=== PATIENT | male | born 1995 | race Caucasian/White ===

== ENCOUNTER 2020-05-13 14:06 | Outpatient (REF) | payer OTHER, SELFPAY ==
[2020-05-13 14:48] LABS: MANUAL DIFF FLAG NO
[2020-05-13 14:58] LABS: Basophils Percent Auto 0.5 % (0-2); Eosinophils Absolute Auto 0.7 X10*3/uL (0.0-0.4); Eosinophils Percent Auto 9.7 % (0-4); Hematocrit 48.2 % (42-52); Hemoglobin 15.9 g/dl (14.0-18.0); Imm Gran Abs Auto 0.03 X10*3/uL (0.00-0.03); Imm Gran Pct Auto 0.4 % (0.0-0.4); Lymphocytes Absolute Auto 1.7 X10*3/uL (1.2-4.9); Lymphocytes Percent Auto 23.4 % (20-40); Mean Corpuscular Hemoglobin 30.7 pg (27.0-33.0); Mean Corpuscular Volume 93.1 fL (80-98); Mean Platelet Volume 10.8 fL (9.4-12.4); Monocytes Absolute Auto 0.6 X10*3/uL (0.1-1.2); Monocytes Percent Auto 7.9 % (2-11); Neutrophils Absolute Auto 4.2 X10*3/uL (2.0-8.3); Neutrophils Percent Auto 58.1 % (45-73); Platelet Count 296 X10*3/uL (160-400); Red Blood Count 5.18 X10*6/uL (4.60-5.80); Red Cell Distribution Width 12.7 % (11.0-16.0); White Blood Count 7.3 X10*3/uL (4.8-10.8)
[2020-05-13 15:26] LABS: Anion Gap 13 (12-20); Blood Urea Nitrogen 16 mg/dL (9-16); Calcium 9.6 mg/dL (8.4-10.2); Carbon Dioxide 29 mmol/L (22-29); Chloride 102 mmol/L (96-108); Estimated Glomerular Filt Rate > 60; Glucose Random 84 mg/dL (60-115); Potassium 4.8 mmol/l (3.3-5.1); Sodium 139 mmol/L (135-145)
[2020-05-13 16:00] LABS: Syphilis Screen Nonreactive (Nonreactive)
[2020-05-14 08:34] LABS: HIV Num 1 0.07 S/CO (0.00-0.99); ~HepC Num1 0.07 S/CO (0.00-0.79); ~Hepatitis C Antibody Nonreactive (Nonreactive)
[2020-05-14 08:35] LABS: HIV AB/AG Nonreactive (Nonreactive)
[2020-05-16 17:54] LABS: Chlamydia Pneumoniae IgA <1:16 titer (<1:16); Chlamydia Pneumoniae IgG <1:64 titer (<1:64); Chlamydia Pneumoniae IgM <1:10 titer (<1:10); Chlamydia Psittaci IgA <1:16 titer (<1:16); Chlamydia Psittaci IgG <1:64 titer (<1:64); Chlamydia Psittaci IgM <1:10 titer (<1:10); Chlamydia Trachomatis IgA <1:16 titer (<1:16); Chlamydia Trachomatis IgG <1:64 titer (<1:64); Chlamydia Trachomatis IgM <1:10 titer (<1:10)
== END 2020-05-13 14:07 | disposition home or self-care (01) ==
LOC: HO.LAB 14:06
PROVIDERS: PCP Internal Medicine; Visit Provider Internal Medicine
DX: Z11.4 Encounter for screening for human immunodeficiency virus [HIV] (principal); Z01.84 Encounter for antibody response examination; R51.9 Headache, unspecified; Z20.2 Contact with and (suspected) exposure to infections with a predominantly sexual mode of transmission
CPT/HCPCS: 36415; 80048; 85025; 86631; 86632; 86780; 86803; 87389

== ENCOUNTER 2021-04-22 10:48 | Outpatient (REF) | payer OTHER, SELFPAY ==
[2021-04-22 11:14] LABS: MANUAL DIFF FLAG NO
[2021-04-22 12:01] LABS: Basophils Percent Auto 0.4 % (0-2); Eosinophils Absolute Auto 0.2 X10*3/uL (0.0-0.4); Eosinophils Percent Auto 2.7 % (0-4); Hematocrit 47.9 % (42-52); Hemoglobin 16.4 g/dl (14.0-18.0); Imm Gran Abs Auto 0.02 X10*3/uL (0.00-0.03); Imm Gran Pct Auto 0.3 % (0.0-0.4); Lymphocytes Absolute Auto 1.9 X10*3/uL (1.2-4.9); Lymphocytes Percent Auto 25.5 % (20-40); Mean Corpuscular HGB Conc 34.2 g/dl (31.0-36.0); Mean Corpuscular Hemoglobin 30.2 pg (27.0-33.0); Mean Corpuscular Volume 88.2 fL (80-98); Mean Platelet Volume 11.3 fL (9.4-12.4); Monocytes Absolute Auto 0.8 X10*3/uL (0.1-1.2); Monocytes Percent Auto 10.8 % (2-11); Neutrophils Absolute Auto 4.4 X10*3/uL (2.0-8.3); Neutrophils Percent Auto 60.3 % (45-73); Platelet Count 321 X10*3/uL (160-400); Red Blood Count 5.43 X10*6/uL (4.60-5.80); Red Cell Distribution Width 12.4 % (11.0-16.0); White Blood Count 7.3 X10*3/uL (4.8-10.8)
[2021-04-22 12:40] LABS: Thyroid Stimulating Hormone 1.14 uIU/mL (0.32-4.0)
[2021-04-22 13:13] LABS: Alanine Aminotransferase 16 U/L (0-40); Albumin Level 5.3 g/dL (3.5-5.0); Alkaline Phosphatase 86 U/L (39-117); Anion Gap 22 (12-20); Aspartate Amino Transferase 21 U/L (5-37); Bilirubin Total 1.3 mg/dL (0.0-1.0); Blood Urea Nitrogen 19 mg/dL (9-16); Calcium 10.7 mg/dL (8.4-10.2); Carbon Dioxide 21 mmol/L (22-29); Chloride 102 mmol/L (96-108); Cholesterol 165 mg/dL; Estimated Glomerular Filt Rate > 60; HDL Cholesterol 56 mg/dL; LDL Cholesterol Calculated 100 mg/dl; Potassium 4.8 mmol/L (3.3-5.1); Sodium 140 mmol/L (135-145); Triglycerides 45 mg/dL
[2021-04-22 13:57] LABS: Glucose Fasting 59 mg/dL (60-99)
== END 2021-04-22 10:49 | disposition home or self-care (01) ==
LOC: HO.LAB 10:48
PROVIDERS: PCP Internal Medicine; Visit Provider Internal Medicine
DX: Z00.00 Encounter for general adult medical examination without abnormal findings (principal); E03.9 Hypothyroidism, unspecified; E11.9 Type 2 diabetes mellitus without complications
CPT/HCPCS: 36415; 80053; 80061; 84443; 85025

== ENCOUNTER 2022-06-04 17:19 | Emergency (ER) | payer BC, SELFPAY ==
--- NOTE | ~2022-06-04 | XR_ITS ---
EXAMINATION: XR ankle RT 2V, XR foot RT 2V CLINICAL INFORMATION: Reason for Exam foot pain COMPARISON: None. TECHNIQUE: 3 views right ankle; 3 views right foot FINDINGS: Right ankle: No acute fracture or dislocation. Ankle mortise is congruent and intact. No ankle joint effusion. Ankle and subtalar joint spaces are maintained. Right foot: No acute fracture or dislocation. Joint spaces are maintained. Normal alignment at the tarsometatarsal joints most nonweightbearing exam. Linear sclerosis in the third distal phalanx consistent with bone island or small focus of melorheostosis. XR/XR ankle RT 2V IMPRESSION: No acute fracture or dislocation identified at the right ankle or foot.
--- NOTE | ~2022-06-04 | XR_ITS ---
EXAMINATION: XR ankle RT 2V, XR foot RT 2V CLINICAL INFORMATION: Reason for Exam foot pain COMPARISON: None. TECHNIQUE: 3 views right ankle; 3 views right foot FINDINGS: Right ankle: No acute fracture or dislocation. Ankle mortise is congruent and intact. No ankle joint effusion. Ankle and subtalar joint spaces are maintained. Right foot: No acute fracture or dislocation. Joint spaces are maintained. Normal alignment at the tarsometatarsal joints most nonweightbearing exam. Linear sclerosis in the third distal phalanx consistent with bone island or small focus of melorheostosis. XR/XR foot RT 2V IMPRESSION: No acute fracture or dislocation identified at the right ankle or foot.
[2022-06-04 18:45] VITALS: BP 136/104; PULSE 100; RESP 18; TEMP 37; O2SAT 99; BMI 25.0
== END 2022-06-04 23:58 | disposition left against medical advice (07) ==
PROVIDERS: Emergency Provider Emergency Medicine; PCP Internal Medicine
DX: S96.911A Strain of unspecified muscle and tendon at ankle and foot level, right foot, initial encounter (principal); X50.1XXA Overexertion from prolonged static or awkward postures, initial encounter; Y93.89 Activity, other specified; Y92.242 Post office as the place of occurrence of the external cause; Y99.0 Civilian activity done for income or pay
CPT/HCPCS: 73600; 73620; 99281; 99283

== ENCOUNTER 2022-07-28 14:47 | Outpatient (REF) | payer BC, SELFPAY ==
[2022-07-28 16:22] LABS: Lithium 0.79 mmol/L (0.60-1.20)
== END 2022-07-28 14:48 | disposition home or self-care (01) ==
LOC: HO.LAB 14:47
PROVIDERS: PCP Internal Medicine; Visit Provider Internal Medicine
DX: F31.9 Bipolar disorder, unspecified (principal); Z79.899 Other long term (current) drug therapy
CPT/HCPCS: 36415; 80178

== ENCOUNTER 2023-07-23 11:31 | Outpatient (AMB) | payer BC, MEDICAID, SELFPAY ==
[2023-07-23 11:36] VITALS: BP 120/88; PULSE 91; TEMP 36.8; O2SAT 99; BMI 22.0
--- NOTE | 2023-07-23 11:36 | MHC.OFFWIV ---
Intake Vital Signs 07/23/23 11:36 Height 5 ft 8 in Weight 145 lb BMI 22.0 BP 120/88 Blood Pressure Location Rt brachial Position Sitting Pulse 91 Pulse Source Pulse Oximeter Temp 98.2 F Temp Source Oral Pulse Oximetry (%) 99 Oxygen Delivery Method Room Air Intake Visit Reasons: EP vomiting last 4 days, no intake/AB Intake Note: Pt is here today for vomiting, hasn't eaten. Pt states symptoms started 4 days ago. Patient Tobacco Use Status: Former Tobacco user Allergies No Known Allergies Allergy (Verified 07/23/23 11:36) Medication List - Last Reconciled 07/23/23 by Jessica Michel NP albuterol sulfate 90 mcg/actuation 2 puffs inhalation ONCE PRN 30 days bupropion HCl 150 mg PO DAILY lithium carbonate 600 mg PO BID ondansetron 8 mg PO Q8H 24 hours quetiapine 300 mg PO BID Do you need a note to return to daycare/school/sports/work: Yes HPI HPI Comments History of Present Illness Details 28 y/0 male patient who presents to walk in clinic with c/o vomiting, diarrhea and abdominal crapping x 4 days. [facility]LY [facility] Medical History (Updated 09/05/21 @ 10:20 by DIANA Sam) Bipolar disorder Family History Mother No problems noted. Father Asthma Social History Housing: House Alcohol intake: never Patient Tobacco Use Status: Former Tobacco user e-Cigarette/Vaping Use: Currently Using Second Hand Smoke Exposure: No service: No Current occupational status: employed Cognitive needs: No Hearing needs: No Vision needs: No Review of Systems Const All systems reviewed & are unremarkable except as noted in HPI and below Physical Exam Vital Signs: Last Vital Signs Temp 98.2 F 07/23/23 11:36 Pulse 91 07/23/23 11:36 BP 120/88 07/23/23 11:36 Pulse Ox 99 07/23/23 11:36 Oxygen Delivery Method Room Air 07/23/23 11:36 BMI result Body Mass Index 22.0 Const General: no acute distress Cardio Rate: regular rate Rhythm: regular rhythm Bruits: no abdominal aortic bruits GI Inspection: Yes normal to inspection, No Abdominal wall edema, No distended and No visible herniation Palpation (GI): No Abdominal aortic bruit present, Soft to palpation, nontender, no guarding, not rigid and No hepatosplenomegaly present Percussion: Yes normal to percussion Auscultation: normal bowel sounds Assessment & Plan Assessment & Plan (1) Diarrhea: Code(s): R19.7 - Diarrhea, unspecified Qualifiers: Diarrhea type: unspecified type Qualified Code(s): R19.7 - Diarrhea, unspecified Plan: BLAND diet Rest, warm fluids. Checked Nisswa levels, WNL (2) Gastritis: Code(s): K29.70 - Gastritis, unspecified, without bleeding Qualifiers: Chronicity: acute Gastritis bleeding: without bleeding Gastritis type: other gastritis Qualified Code(s): K29.00 - Acute gastritis without bleeding Plan: BLAND diet Rest, warm fluids. Checked Nisswa levels, WNL Orders: Orders Nisswa Today K29.70 - Gastritis, unspecified, without bleeding Medications: New ondansetron 8 mg PO Q8H 24 hours 20 tabs 0RF K29.70 - Gastritis, unspecified, without bleeding, R19.7 - Diarrhea, unspecified metoclopramide HCl (Reglan) 10 mg PO Q6H 30 tabs 0RF K29.00 - Acute gastritis without bleeding, R19.7 - Diarrhea, unspecified Coding Level of Care Code Est Pt Level 2 (65377) Diagnoses Diarrhea, unspecified type R19.7 Diarrhea type: unspecified type Other acute gastritis without hemorrhage K29.00 Chronicity: acute Gastritis bleeding: without bleeding Gastritis type: other gastritis Time Spent (min) 15
== END 2023-07-23 12:54 | disposition home or self-care (01) ==
PROVIDERS: PCP Internal Medicine; Visit Provider Nurse Practitioner Family
DX: R19.7 Diarrhea, unspecified (principal); K29.00 Acute gastritis without bleeding
CPT/HCPCS: 99214

== ENCOUNTER 2023-07-23 12:13 | Outpatient (REF) | payer BC, MEDICAID, SELFPAY ==
[2023-07-23 14:26] LABS: Lithium 0.92 mmol/L (0.60-1.20)
== END 2023-07-23 12:14 | disposition home or self-care (01) ==
LOC: HO.HMGCLDS 12:13
PROVIDERS: PCP Internal Medicine; Visit Provider Nurse Practitioner Family
DX: K29.70 Gastritis, unspecified, without bleeding (principal); Z79.899 Other long term (current) drug therapy
CPT/HCPCS: 36415; 80178

== ENCOUNTER 2024-11-01 14:49 | Outpatient (AMB) | payer BC, MEDICAID, SELFPAY ==
[2024-11-01 14:51] VITALS: BP 110/76; PULSE 89; O2SAT 97; BMI 19.3
--- NOTE | 2024-11-01 14:51 | MHC.PC.OV ---
Vital Signs 11/01/24 14:51 Height 5 ft 8 in Weight 127 lb 4 oz BMI 19.3 BP 110/76 Blood Pressure Location Lt brachial Position Sitting Pulse 89 Pulse Source Pulse Oximeter Pulse Oximetry (%) 97 Oxygen Delivery Method Room Air Intake Visit Reasons: danyell Dr Olivares Certified Adapted Physical Educator Required: No Accompanied by: Self / Same As Patient Allergies No Known Allergies Allergy (Verified 11/01/24 15:08) Medication List - Last Reconciled 11/01/24 by Laron Burdick MD albuterol sulfate 90 mcg/actuation 2 puffs inhalation ONCE PRN 30 days bupropion HCl SR 150 mg PO DAILY lithium carbonate 600 mg PO BID metoclopramide HCl (Reglan) 10 mg PO Q6H ondansetron 8 mg PO Q8H 24 hours quetiapine 300 mg PO BID Tobacco use date assessed: 11/01/24 Dental Screening Dental Screen Date: 11/01/24 Did you have a dental visit in the last 12 months?: No Did you have a dental problem in the last 6 months where you did not have access to dental care?: No Was dental information given to patient?: No HPI danyell Dr Olivares HPI Details Patient comes in today for his follow-up visit - is transferring over from Dr. Olivares, who retired from the practice a few weeks ago Patient states that he currently feels okay except for a persistent ringing in his ears, which she states have been going on for a while now He denies any ear pain or any issues with his hearing He denies any headaches or dizziness Denies any chest pains, no shortness of breath No nausea/vomiting, no abdominal pain No change in bowel habits noted FOR[facility]LY [facility] Medical History (Updated 11/06/24 @ 06:05 by Laron Burdick MD) Bipolar disorder Surgical History (Updated 11/01/24 @ 15:12 by Laron Burdick MD) No pertinent past surgical history Family History Mother No problems noted. Father Asthma Social History Housing: House Alcohol intake: never Patient Tobacco Use Status: Former Tobacco user e-Cigarette/Vaping Use: Currently Using Second Hand Smoke Exposure: No service: No Current occupational status: employed Cognitive needs: No Hearing needs: No Vision needs: No Questionnaire PHQ-9 Over the last 2 weeks, how often have you been bothered by any of the following problems? 1. Little interest or pleasure in doing things: several days 2. Feeling down, depressed, or hopeless: several days 3. Trouble falling or staying asleep, or sleeping too much: more than half the days 4. Feeling tired or having little energy: several days 5. Poor appetite or overeating: more than half the days 6. Feeling bad about yourself - or that you are a failure or have let yourself or your family down: not at all 7. Trouble concentrating on things, such as reading the newspaper or watching television: nearly every day 8. Moving or speaking so slowly that other people could have noticed. Or the opposite - being so fidgety or restless that you have been moving around a lot more than usual: not at all 9. Thoughts that you would be better off or of hurting yourself in some way: not at all Total score: 10 Depression Screening Interpretation: Positive Depression Screening Follow-up: Existing condition and In treatment Depression Screening Done: Yes 64552 - PHQ-9 Billing: Yes Source: Developed by Drs. Desmond Lopez, Kenzie Garnett, Jorge Ly and colleagues, with an educational navid from [employer]. Thrive Questionnaire Date Thrive assessed: 11/01/24 I am a: Patient What is your living situation today?: I have a steady place to live Within the past 12 months, did the food you bought not last and you didn't have the money to get more?: Sometimes True Within the past 12 months, did you worry whether your food would run out before you got money to buy more?: Sometimes True Do you have trouble paying for medicines?: No Do you have trouble getting transportation to medical appointments?: No Do you have trouble paying your heating and electricity bill?: No Do you have trouble taking care of your child, family member or friend?: No Do you have trouble with day-to-day activities such as bathing, preparing meals, shopping, managing finances, etc.?: No Are you currently unemployed and looking for a job?: No Are you interested in more education?: Yes Please select the resources that you would like help with: Education Currently or been in a relationship where the following occur: No concerns reported THRIVE Score: 2 AUDIT C Alcohol Use Questionnaire (AUDIT-C) 1. How often do you have a drink containing alcohol?: Never 3. How often do you have six or more drinks on one occasion?: Never Total Score: 0 Score Reviewed/Action Taken: Yes AISHA-7 AMB Questionnaire AISHA-7 Date AISHA - 7 assessed: 11/01/24 Feeling nervous, anxious, or on edge: 3 = Nearly every day Not being able to stop or control worryin = More than half the days Worrying too much about different things: 2 = More than half the days Trouble relaxin = Nearly every day Being so restless that it is hard to sit still: 3 = Nearly every day Becoming easily annoyed or irritable: 0 = Not at all Feeling afraid as if something awful might happen: 0 = Not at all Total AISHA-7 score (0-4 normal; 5-9 mild; 10-14 moderate; 15-21 severe): 13 Source: Developed by Drs. Desmond Lopez, Kenzie Garnett, Jorge Ly and colleagues, with an educational navid from [employer]. Review of Systems Const Denies chills, Denies fatigue, Denies fever(s) and Denies headache(s) ENT Denies dysphagia, Denies dizziness, Denies otalgia, Denies headache(s), Denies neck pain, Denies odynophagia, Reports tinnitus (persistent/constant, in both ears - ongoing x 4 to 5 years now) and Denies sore throat Card Denies chest pain, Denies palpitations and Denies dyspnea Resp Denies cough and Denies dyspnea GI Denies abdominal pain, Denies constipation, Denies dysphagia, Denies heartburn, Denies diarrhea, Denies nausea, Denies odynophagia and Denies vomiting Denies dysuria and Denies nocturia Musc Denies neck pain Neuro Denies dizziness and Denies headache(s) Endo Denies fatigue and Denies palpitations Physical exam (Primary Care) Vital Signs: Last Vital Signs Pulse 89 11/01/24 14:51 BP 110/76 11/01/24 14:51 Pulse Ox 97 11/01/24 14:51 Oxygen Delivery Method Room Air 11/01/24 14:51 BMI result Body Mass Index 19.3 Tobacco/Smoking Status: Tobacco use Status Tobacco use date assessed 11/01/24 11/01/24 14:56 Patient Tobacco Use Status Former Tobacco user 11/01/24 14:56 e-Cigarette/Vaping Use Currently Using 11/01/24 14:56 PHQ-9: PHQ-9 Score PHQ-9: Total score 10 11/01/24 15:12 Depression Screening Interpretation: Positive Depression Screening Follow-up: Existing condition and In treatment Thrive Assessment: Date of Thrive Assessment Date Thrive assessed 11/01/24 11/01/24 14:56 Currently or been in a relationship where the following occur: No concerns reported Const General: no acute distress and alert HENMT Ears: TM's normal bilaterally and EAC's normal Throat: Yes posterior oropharynx normal and Yes tonsils normal (no TP congestion) Neck Neck: Yes supple and No lymphadenopathy Thyroid: Thyroid normal Resp Auscultation: clear to auscultation bilaterally, no rales and no wheezes Cardio Rate: regular rate Rhythm: regular rhythm Heart sounds: no murmurs GI Palpation (GI): Soft to palpation and nontender Auscultation: normal bowel sounds General: Yes no CVA tenderness Back/Spine/Pelvis Back: no CVA tenderness Thoracic/Lumbar Spine: No lumbar spinal tenderness Skin Rashes: no rashes Extrem General: Yes no clubbing, cyanosis or edema Coding Level of Care Code Est Pt Level 4 (50756) Diagnoses Tinnitus, bilateral H93.13 Anxiety F41.9 Bipolar affective disorder, current episode mixed, current episode severity unspecified F31.60 Active/Remission status: currently active Current bipolar episode type: mixed Current episode severity: unspecified Additional Codes PHQ-9 - 88794 - PHQ-9 Billing: Yes ([id number]) Assessment & Plan Assessment & Plan (1) Tinnitus, bilateral: Code(s): H93.13 - Tinnitus, bilateral Category: Medical Plan: Will refer patient to ENT for further evaluation and management (2) Anxiety: Code(s): F41.9 - Anxiety disorder, unspecified Category: Medical Plan: Continue Bupropion SR 150 mg QD (3) Bipolar disorder: Code(s): F31.9 - Bipolar disorder, unspecified Category: Medical Qualifiers: Active/Remission status: currently active Current bipolar episode type: mixed Current episode severity: unspecified Qualified Code(s): F31.60 - Bipolar disorder, current episode mixed, unspecified Plan: Continue Aldan carbonate 600 mg BID and Quetiapine 300 mg BID Follow up with psychiatry as scheduled Plan To return in 6 months for his next annual physical examination Orders: Orders Complete Blood Count Auto Diff 6 Months D64.9 - Anemia, unspecified, Z00.00 - Encounter for general adult medical examination without abnormal findings Comprehensive [place]. Panel Fast 6 Months E78.00 - Pure hypercholesterolemia, unspecified, Z00.00 - Encounter for general adult medical examination without abnormal findings TSH reflex Free T4 6 Months E78.00 - Pure hypercholesterolemia, unspecified, Z00.00 - Encounter for general adult medical examination without abnormal findings UA CC w/rflx Micro + Cult 6 Months R30.0 - Dysuria, Z00.00 - Encounter for general adult medical examination without abnormal findings Vitamin D 25-OH Total 6 Months E55.9 - Vitamin D deficiency, unspecified, Z00.00 - Encounter for general adult medical examination without abnormal findings Lipid Panel 6 Months E78.00 - Pure hypercholesterolemia, unspecified, Z00.00 - Encounter for general adult medical examination without abnormal findings Referrals Ear/Nose/Throat Referral H93.13 - Tinnitus, bilateral
--- OUTSIDE RECORDS SUMMARY | 2024-11-01 15:58 | XMS_ITS | Clinical Summary ---
Author Organization [facility] ity Address [address] [place] [address] Care Team Providers Care Fish And Wildlife Technician Name Role Phone Unavailable Primary Care Provider Unavailabl e Social History Tobacco Use Types Packs/Day Years Used Date Smoking Tobacco: Never Assessed Sex and Gender Information Value Date Recorded Sex Assigned at Not on file Legal Sex Male 3:52 AM EST Gender Identity Not on file Sexual Orientation Not on file Plan of Treatment Health Maintenance Due Date Last Done Comments DTaP,Tdap,and Td Vaccines (1 - Tdap) 2015 Hepatitis B Vaccines (1 of 3 - 19+ 3-dose series) 2015 COVID-19 Vaccine (2023-2 5 season) 2024 Influenza Vaccine (Season Ended) 2025 HIB Vaccines Aged Out No longer eligi ble based on patient's age to complete this topic HPV Vaccines Aged Out No longer eligi ble based on patient's age to complete this topic Hepatitis A Vaccines Aged Out No long er eligible based on patient's age to complete this topic IPV Vaccines Aged Out No longer eligi ble based on patient's age to complete this topic MMR Vaccines Aged Out No longer eligi ble based on patient's age to complete this topic Meningococcal ACWY Vaccine Aged Out N o longer eligible based on patient's age to complete this topic Meningococcal B Vaccine Aged Out No l onger eligible based on patient's age to complete this topic Pneumococcal Vaccine: Pediat rics (0 to 5 Years) and At-Risk Patients (6 to 64 Years) Aged Out No longer eligible b ased on patient's age to complete this topic RSV Immunization Patients Un yonatan 20 months Aged Out No longer eligible b ased on patient's age to complete this topic Varicella Vaccines Aged Out No longer eligible based on patient's age to complete this topic
--- OUTSIDE RECORDS SUMMARY | 2024-11-01 15:58 | XMS_ITS | Data Portability ---
Author Organization [place] - [facility], [facility] Address [address] [place] [id number] Assessment Encounter Date Assessment Date Assessment LastModified by Organization Details LastModified Time 07/12/2012 07/12/2012 Asthma exacerbation- will do burst steroids.? ? ? extensive disc of need for use of flovent.? ? ? disc needs preventative.? ? ? will refer back for fu with DR Birch.? ? ? extensive trauma counsellor on meds and reasons for use ST- Symptomatic care.? ? ? Call if worse/ not improving or with any concerns jyunis Not available 07/12/2012 13:21:14 01/30/2013 01/30/2013 Pharyngitis - likely viral, unilateral exudate raises possibility of early peritonsillar cellulitis/absce ss but no other findings/symptom s c/w this, discussed need to RTO if worsens, thrt cx pding, sx care, f/u prn kcamera Not available 01/30/2013 17:38:14 02/01/2013 02/01/2013 Exudative Pharyngitis - worsening, not c/w peritonsillar abscess/cellulit is, will screen for Swisher and call with results, sx care, if + Swisher not a candidate for steroids at this time, f/u prn kcamera Not available 02/01/2013 14:32:44 08/31/2013 08/31/2013 Healthy 18 year old.? ? ? Nl growth and dev Asthma- followed by Dr Birch- ? ? ?has not taken his meds. No cough with sleep or activity- does not alb much Pos Symp checklist- has tried therapy in the past- ? ? ?Has issues with behavior- [facility] if not will refer to psych VC Done jkasi Not available 08/31/2013 10:21:23 01/18/2015 01/18/2015 Healthy 19 year old.? ? ? Nl growth and dev Asthma- followed by Dr Birch- ? ? ?has not taken his meds. No cough with sleep or activity- does not alb much Pos Symp checklist- not in therapy- suggested therapy robbi Not available 01/18/2015 13:55:00 Plan of Treatment Reminders Order Date Submit Date Provider Last Modified By Organization Details Last Modified Time Details Appointments None recorded. Lab CT + NG DNA, PCR, urine 2014 015 ANMOL [facility] (Centralized Electronic Ordering - All Locations), Patient Can Go To The Location Of Their Choice, 5 13:18:12 HIV 1 HIV 2 Ab (EIA w/ reflex) 2013 014 ecardillo [facility] (Centralized Electronic Ordering - All Locations), Patient Can Go To The Location Of Their Choice, 5 15:06:33 chlamydia/ GC, urine amplified DNA PCR 2013 014 lvoit [facility] (Centralized Electronic Ordering - All Locations), Patient Can Go To The Location Of Their Choice, 4 10:55:33 lipid panel - FASTING 2013 014 ecardillo [facility] (Centralized Electronic Ordering - All Locations), Patient Can Go To The Location Of Their Choice, 5 15:06:34 ebv Ab igg igm & ebna 2012 013 ecardillo [facility] (Centralized Electronic Ordering - All Locations), Patient Can Go To The Location Of Their Choice, [id number] 3 15:00:50 lipid panel - FASTING 2012 013 ANMOL [facility] (Centralized Electronic Ordering - All Locations), Patient Can Go To The Location Of Their Choice, 3 17:58:54 monospot 2012 013 ANMOL [facility] (Centralized Electronic Ordering - All Locations), Patient Can Go To The Location Of Their Choice, 3 20:02:26 CBC w/ auto diff - Please check for Atypical Lymphs 2012 013 ANMOL [facility] (Centralized Electronic Ordering - All Locations), Patient Can Go To The Location Of Their Choice, [id number] 3 17:21:55 culture, throat [address] [facility], [address] [place] [address], [phone], 3 17:38:40 rapid strep A [address] [facility], [address] [place] [address], [phone], 3 17:38:40 culture, throat 2012 013 [facility], [address] [place] [address], [phone], 3 03:18:29 rapid strep A 2012 013 [facility], [address] [place] [address], [phone], 3 03:18:29 Referral pediatric pulmonolog ist referral 2012 013 ANMOL Not available 3 03:18:29 Procedures None recorded. Surgeries None recorded. Imaging None recorded. Medication Orders prednisone 10 mg tablet 2012 013 [email or web address] [id number], [address] [place], [address], 3 16:37:22 Patient TargetsNo targets recorded. Patient Instructions Encounter Date Encounter Id Patient Instructions Last Modified By Organization Details Last Modified Time 08/31/2013 [id number] pediatric sympto m checklist* jyunis Not available 08/31/2013 10:21:23 01/18/2015 [id number] immunization: wh at you need to know jyunis Not available 01/18/2015 13:54:59 patient health questionnaire depression assessment* jykike Not available 01/18/2015 13:54:59 Well Visit, Ages 18 to 65: Care Instructions ANMOL Not available 04/19/2015 02:14:10 [id number] program - 5 fruits & veggies ANMOL Not available 04/19/2015 02:14:11 Reason for Referral Referring Physician: Jeremias Parekh, Pediatric Medicine, Encounter Date: 07/12/2012 Results Created Date Observation Date Name Description Value Unit Range Abnormal Flag Note LastModifiedBy Organization Detail LastModifiedTime 01/19/20 15 01/18/2015 patie nt healt h quest ionna teofilo depre ssion asses sment * PHQ-9 positi ve Not Available [facility] [address] [place] [address], [phone], 01/18/2015 13:25:03 08/31/19 14 08/31/2013 pedia tric sympt om check list* Result positi ve Not Available [address], [phone], 08/31/2013 09:37:37 01/31/20 13 01/30/2013 rapid strep A Rapid Strep negati ve Not Available [facility] [address] [place] [address], [phone], 01/30/2013 16:33:51 01/31/20 13 01/30/2013 cultu re, throa t Result 24 HR negati ve Not Available [facility] [address] [place] [address], [phone], 01/30/2013 16:33:51 01/31/20 13 01/30/2013 cultu re, throa t Result 48 HR negati ve Not Available [facility] [address] [place] [address], [phone], 01/30/2013 16:33:51 07/12/19 13 07/12/2012 rapid strep A Rapid Strep Not Available [facility] [address] [place] [address], [phone], 07/12/2012 13:05:54 07/12/19 13 07/12/2012 rapid strep A Rapid Strep negati ve Not Available [facility] [address] [place] [address], [phone], 07/12/2012 13:05:54 07/12/19 13 07/12/2012 cultu re, throa t Result 24 HR negati ve Not Available [facility] [address] [place] [address], [phone], 07/12/2012 13:05:54 07/12/19 13 07/12/2012 cultu re, throa t Result 48 HR negati ve Not Available [facility] [address] [place] [address], [phone], 07/12/2012 13:05:54 02/02/20 13 02/01/2013 CBC w/dif f WBC 16.0 K/mm3 (4.0-1 1.0) high Not Available [facility] (Centralized Electronic Ordering - All Locations) Patient Can Go To The Location Of Their Choice, [id number] 02/01/2013 17:21:55 02/02/2002/01/2013 CBC w/dif f RBC 4.85 M/mm3 (4.70- 6.10) Not Available [facility] (Centralized Electronic Ordering - All Locations) Patient Can Go To The Location Of Their Choice, [id number] 02/01/2013 17:21:55 02/02/2002/01/2013 CBC w/dif f HGB 15.1 gm/dL (14.0- 18.0) Not Available [facility] (Centralized Electronic Ordering - All Locations) Patient Can Go To The Location Of Their Choice, 02/01/2013 17:21:55 02/02/2002/01/2013 CBC w/dif f HCT 43.3 % (42.0- 52.0) Not Available [facility] (Centralized Electronic Ordering - All Locations) Patient Can Go To The Location Of Their Choice, [id number] 02/01/2013 17:21:55 02/02/2002/01/2013 CBC w/dif f MCV 89.3 fL (80.0- 94.0) Not Available [facility] (Centralized Electronic Ordering - All Locations) Patient Can Go To The Location Of Their Choice, 02/01/2013 17:21:55 02/02/2002/01/2013 CBC w/dif f MCH 31.1 pg (27.0- 34.0) Not Available [facility] (Centralized Electronic Ordering - All Locations) Patient Can Go To The Location Of Their Choice, 02/01/2013 17:21:55 02/02/2002/01/2013 CBC w/dif f MCHC 34.9 % (33.0- 37.0) Not Available [facility] (Centralized Electronic Ordering - All Locations) Patient Can Go To The Location Of Their Choice, 02/01/2013 17:21:55 02/02/2002/01/2013 CBC w/dif f RDW 13.5 % (11.6- 14.8) Not Available [facility] (Centralized Electronic Ordering - All Locations) Patient Can Go To The Location Of Their Choice, 02/01/2013 17:21:55 02/02/2002/01/2013 CBC w/dif f plt 172 K/mm3 (150-4 60) Not Available [facility] (Centralized Electronic Ordering - All Locations) Patient Can Go To The Location Of Their Choice, 02/01/2013 17:21:55 02/02/2002/01/2013 CBC w/dif f MPV 11.9 fL (9.4-1 2.4) Not Available [facility] (Centralized Electronic Ordering - All Locations) Patient Can Go To The Location Of Their Choice, 02/01/2013 17:21:55 02/02/2002/01/2013 CBC w/dif f neut 75.7 % (44-76 ) luc oneil rmed Not Available [facility] (Centralized Electronic Ordering - All Locations) Patient Can Go To The Location Of Their Choice, 02/01/2013 17:21:55 02/02/2002/01/2013 CBC w/dif f lymph 9.2 % (15-43 ) low Not Available [facility] (Centralized Electronic Ordering - All Locations) Patient Can Go To The Location Of Their Choice, 02/01/2013 17:21:55 02/02/2002/01/2013 CBC w/dif f monocyte 13.9 % (4.5-1 0.5) high Not Available [facility] (Centralized Electronic Ordering - All Locations) Patient Can Go To The Location Of Their Choice, 02/01/2013 17:21:55 02/02/2002/01/2013 CBC w/dif f eo 1.1 % (0-6) Not Available [facility] (Centralized Electronic Ordering - All Locations) Patient Can Go To The Location Of Their Choice, 02/01/2013 17:21:55 02/02/2002/01/2013 CBC w/dif f baso 0.1 % (0-2) Not Available [facility] (Centralized Electronic Ordering - All Locations) Patient Can Go To The Location Of Their Choice, 02/01/2013 17:21:55 02/02/2002/01/2013 CBC w/dif f neut # 12.1 K/mm3 (1.3-7 .0) high Not Available [facility] (Centralized Electronic Ordering - All Locations) Patient Can Go To The Location Of Their Choice, 02/01/2013 17:21:55 02/02/2002/01/2013 CBC w/dif f lymph # 1.5 K/mm3 (0.8-3 .1) Not Available [facility] (Centralized Electronic Ordering - All Locations) Patient Can Go To The Location Of Their Choice, 02/01/2013 17:21:55 02/02/2002/01/2013 CBC w/dif f mono# 2.2 K/mm3 (0.4-1 .3) high Not Available [facility] (Centralized Electronic Ordering - All Locations) Patient Can Go To The Location Of Their Choice, 02/01/2013 17:21:55 02/02/2002/01/2013 CBC w/dif f eo # 0.2 K/mm3 (0.0-0 .4) Not Available [facility] (Centralized Electronic Ordering - All Locations) Patient Can Go To The Location Of Their Choice, 02/01/2013 17:21:55 02/02/2002/01/2013 CBC w/dif f baso # 0.0 K/mm3 (0.0-0 .1) Not Available [facility] (Centralized Electronic Ordering - All Locations) Patient Can Go To The Location Of Their Choice, 02/01/2013 17:21:55 02/02/2002/01/2013 lipid panel cholesterol, total 115 mg/dL (0-170 ) Not Available [facility] (Centralized Electronic Ordering - All Locations) Patient Can Go To The Location Of Their Choice, 02/01/2013 17:58:54 02/02/2002/01/2013 lipid panel triglyceride 63 mg/dL (0-100 ) Not Available [facility] (Centralized Electronic Ordering - All Locations) Patient Can Go To The Location Of Their Choice, 02/01/2013 17:58:54 02/02/2002/01/2013 lipid panel HDL chol 50 mg/dL (>40) Not Available [facility] (Centralized Electronic Ordering - All Locations) Patient Can Go To The Location Of Their Choice, 02/01/2013 17:58:54 02/02/2002/01/2013 lipid panel LDL cholesterol, calculated 52 mg/dL (0-109 ) Not Available [facility] (Centralized Electronic Ordering - All Locations) Patient Can Go To The Location Of Their Choice, 02/01/2013 17:58:54 02/02/2002/01/2013 lipid panel non HDL cholesterol (calc) 65 mg/dL (0-139 ) Not Available [facility] (Centralized Electronic Ordering - All Locations) Patient Can Go To The Location Of Their Choice, 02/01/2013 17:58:54 02/02/2002/01/2013 monon ucleo sis test, qual mono test NEGATI VE (neg) stat Not Available [facility] (Centralized Electronic Ordering - All Locations) Patient Can Go To The Location Of Their Choice, 02/01/2013 20:02:26 02/02/2002/04/2013 epste in-ba rr virus Ab panel viral capsid Ab IgM 0.3 refer ence range : 0.0 to 0.8 unit: ai (note ) negat mehran <0.9 equiv ocal 0.9 - 1.0 posit mehran >1.0 Not Available [facility] (Centralized Electronic Ordering - All Locations) Patient Can Go To The Location Of Their Choice, 02/04/2013 12:35:55 02/02/20 13 02/04/2013 epste [facility] rr virus Ab panel viral capsid Ab IgG 5.8 high refer ence range : 0.0 to 0.8 unit: ai (note ) negat mehran <0.9 equiv ocal 0.9 - 1.0 posit mehran >1.0 Not Available [facility] (Centralized Electronic Ordering - All Locations) Patient Can Go To The Location Of Their Choice, [facility] 02/04/2013 12:35:55 02/02/20 13 02/04/2013 epste [facility] rr virus Ab panel anti eb nuc. Ag. 5.6 high refer ence range : 0.0 to 0.8 unit: ai (note ) negat mehran <0.9 equiv ocal 0.9 - 1.0 posit mehran >1.0 test perfo rmed at [facility] Not Available [facility] (Centralized Electronic Ordering - All Locations) Patient Can Go To The Location Of Their Choice, [facility] 02/04/2013 12:35:55 01/19/20 15 01/21/2015 CT + NG DNA, PCR, unspe cifie d speci men urine chlamydia amp probe NEGAT MEHRAN No Chlam ydia Trach omati s RNA detec radha in this patie nt's sampl e (REFE RENCE RANGE /NORM AL VALUE : NOT DETEC RADHA) Not Available [facility] (Centralized Electronic Ordering - All Locations) Patient Can Go To The Location Of Their Choice, [facility] 01/21/2015 13:18:11 01/19/2001/21/2015 CT + NG DNA, PCR, unspe cifie d speci men urine GC amp probe NEGAT MEHRAN No Neiss eria Gonor rhoea e RNA detec radha in this patie nt's sampl e (REFE RENCE RANGE /NORM AL VALUE : NOT DETEC RADHA) NOTE: This test uses trans cript ion-m ediat ed ampli ficat ion metho d to detec t rRNA from C.Tra choma tis and N.Des orrho eae. A negat mehran resul t does not precl ude infec tion. In the case of a negat mehran urine resul t, testi ng of an endoc ervic al(fe male) or ureth ral(m krystina) speci men is recom dell d if there is high clini delmar suspi cion of infec tion. The perfo rmanc e yolis cteri stics of this test have not been evalu ated in child price. The Aptim a Combo 2 assay is not inten ded for the evalu ation of suspe cted sexua l abuse or for other medic o-leg al indic ation s. The order ing provi yonatan shoul d asses s if the patie nt had conse nsual sex witho ut risk of sexua l abuse . Cons[facility] lt [facility] if neede d. Conta ct phone numbe r . Thera peuti c failu re or succe ss canno t be deter mined with the Aptim a Combo 2 assay since nucle ic acid may persi st follo wing appro priat e antim icrob ial thera py. The Cente rs for Disea se Contr ol and Preve ntion ([facility]) recom mends confi rmato ry retes ting using cultu re or a diffe rent nucle ic acid ampli ficat ion test when posit mehran resul ts occur , if indic ated. Testi ng perfo rmed or repor radha by [facility] ate Refer ence Labor atori es, a Serv[facility], [address] [facility] [place] [address] Magalis josef knight MD, PhD, Medic al Direc tor Not Available [facility] (Centralized Electronic Ordering - All Locations) Patient Can Go To The Location Of Their Choice, [id number] 01/21/2015 13:18:11 Result Notes None recorded. Problems Name Problem SNOMED Code Status Onset Date Resolution Date Notes Provider Name and Address Organization Details Recorded Time Urinary incontinen ce 078556314 Completed 200801/18/2015 Jeremias Parekh MD [address] [place] [address] [place], [phone] , [facility] 5 13:49:02 Headache 56558822 Completed 08/31/2013 Jeremias Parekh MD [address], [place], , [facility] 4 09:54:09 Eczema 19995467 Completed 01/18/2015 Jeremias Parekh MD [address] [place] [address], , [facility] 5 13:49:02 Dizziness and giddiness 875437790 Completed 200708/31/2013 Jeremias Parekh MD [address] [place] [address], , [facility] 4 09:54:09 Gastroesop hageal reflux disease 595207630 Completed 08/31/2013 Jeremias Parekh MD [address] [place] [address], , [facility] 4 09:54:09 Pneumonia 555056605 Completed 01/18/2015 Jeremias Parekh MD [address] [place] [address], , [facility] 5 13:49:02 Otitis media 65821990 Completed 08/31/2013 Jeremias Parekh MD [address] [place] [address], , [facility] 4 09:54:09 Viral disease 57840184 Completed 08/31/2013 Jeremias Parekh MD [address] [place] [address], , [facility] 4 09:54:09 Acute conjunctiv itis 09411623 Completed 08/31/2013 Jeremias Parekh MD [address] [place] [address], , [facility] 4 09:54:09 Acute pharyngiti s 636599172 Completed 08/31/2013 Jeremias Parekh MD [address] [place] [address], , [facility] 4 09:54:09 Allergic rhinitis 77038167 Completed 200708/31/2013 Jeremias Parekh MD [address] [place] [address] [place], , [facility] 4 09:54:09 Asthma 484546953 Active 2007 Marry Lockwood MD [address] [place] [address], , [facility] 6 09:05:21 Acute asthma 573195787 Active Not Available [facility] 3 03:01:43 Torticolli s 32178440 Completed 08/31/2013 Jeremias Parekh MD [address] [place] [address], , [facility] 4 09:54:09 Problem Notes None recorded. Procedures Surgical History Date Name Laterality Status Provider Name and Address Organization Details Recorded Time 2 Nebulizer tx completed Marry Lockwood MD [address] [place] [address], , [facility] 12/13/2011 10:53:27 Imaging Results None recorded. Procedure Notes None recorded. Medical Equipment None Reported. Allergies No known drug allergies Medications Name Sig Start Date Stop Date Status Note LastModified by Organization Details LastModified Time prednisone 10 mg tablet Take 3 tablets twice a day by oral route for 5 days. 07/17 completed Not Available Not Available Not Available cetirizine 10 mg tablet TAKE 1 TABLET BY MOUTH EVERY DAY active Not Available Not Available No t Available hydrocortis one valerate 0.2 % topical cream Apply to affected area(s) by topical route 2 times per day 2009 active Not Available Not Available Not Avai lable clonazepam 0.5 mg tablet active Not Available Not Available Not Available sertraline 100 mg tablet active Not Available Not Available Not Available Zithromax Z-Kyree 250 mg tablet Take 2 tablets (500 mg) by oral route once daily for 1 day then 1 tablet (250 mg) by oral route once daily for 4 days 2011 active Not Available Not Available Not Avai lable permethrin 5 % topical cream massage permethri n cream thoroughl y into the skin from the neck to the soles of the feet, including areas under the fingernai ls and toenails. Wash off after 8-14 hrs 2010 active Not Available Not Available Not Avai lable Flonase 50 mcg/actuati on nasal spray,suspe nsion [place] 1 spray every day by intranasa l route at bedtime. 2010 active Not Available Not Available Not Avai lable ibuprofen 400 mg tablet active Not Available Not Available Not Available Advair Diskus 500 mcg-50 mcg/dose powder for inhalation active Not Available Not Available N ot Available ibuprofen 200 mg tablet Take 2-3 tablet (200 mg) by oral route every 6 hours as needed with food 2010 active Not Available Not Available Not Avai lable Polytrim 10,000 unit-1 mg/mL eye drops Instill 2 drops into both eyes 3 times daily for 5 days 2010 active Not Available Not Available Not Avai lable omeprazole 20 mg capsule,del ayed release Take 1 capsule every day by oral route for 30 days. 2009 active Not Available Not Available Not Avai lable sertraline 50 mg tablet active Not Available Not Available Not Available hydroxyzine pamoate 25 mg capsule active Not Available Not Available N ot Available azithromyci n 500 mg tablet active Not Available Not Available Not Available ProAir HFA 90 mcg/actuati on aerosol inhaler INHALE 2 PUFF(S) EVERY 4-6 HOURS as needed active Not Available Not Available No t Available quetiapine 50 mg tablet active Not Available Not Available Not Available ProAir HFA active Not Available Not Av ailable Not Available Flovent Diskus 250 mcg/actuati on powder for inhalation Inhale 2 puff(s) twice a day by inhalatio n route for 30 days. 2011 active Not Available Not Available Not Avai lable Vitals Date Recorded Body temperature Provider Name a nd Address Organization Details Last Updated DateTime 01/30/2013 98.8 [degF] Jayna Boudreaux M.A. [facility] 01/30/2013 16:37:22 Date Recorded Body height Body weight Body mass index (BMI) Systolic blood pressure Diastolic blood pressure Provider Name and Address Organization Details Last Updated DateTime 08/31/2013 172.72 cm 08104.26 914 g 18.6 kg/m2 114 mm[Hg] 64 mm[Hg] Monica Martínez M.A. [facility] 02/27/201 4 09:47:08 Date Recorded Body height Body mass index (BMI) Body weight Systolic blood pressure Diastolic blood pressure Provider Name and Address Organization Details Last Updated DateTime 01/18/2015 172.72 cm 18.7 kg/m2 83628.86 151 g 104 mm[Hg] 64 mm[Hg] Monica Martínez M.A. [facility] 5 13:36:12 Social History Question Answer Notes LastModified by Organizat ion Details LastModified Time Tobacco Smoking Status Former Smoker smokes outside Not Available [facility] 05/07/2020 03:14:39 Parent's Marital Status Unmarried [id number] Information not available 05/09/2011 Home Situation Mother Information not available 05/09/2011 Siblings Jeremias (M) 02/03/88, Gudelia (F) 04/26/91, Marialuisa (F) 06/11/94, Rey Félix (M) 08/27/99, Sandeep Lr (M) 06/28/06 Information not available 05/09/2011 Parent's Name Julia Lr Information not available 05/09/2011 Are You Passively Exposed To Smoke? Yes Mom's Girlfriend slevin Information not available 01/18/2015 Sex: Unknown Functional Status None recorded. Mental Status None recorded. Family History Relationship Description Onset Age of this Age Resolved Age Notes LastModified by Organization Details LastModified Time Mother Problem depres beth slevin Not available 01/18/2015 13:42:07 Mother Hypercholest erolemia slevin Not available 2014 13:42:07 Paternal Grandfather Malignant neoplastic disease lympho ma slevin Not available 01/18/2015 13:42:07 Father Asthma slevin Not available 13:42:07 Notes:updated 01/18/15 Medical History Condition Response ORTHOPEDIC PROBLEMS Y Immunizations Vaccine Type Date Status Note Provider Nam e and Address Organization Details Recorded Time varicella 7 completed Not Available [facility] 05/09/2011 03:18:24 MMR 1 completed Santos Alvarado [facility] 07/20/2011 08:51:51 OPV 7 [facility]2011 08:51:51 DTaP, unspecified formulation 7 [facility] 07/20/2011 08:51:51 Hep B, unspecified formulation 7 [facility] 07/20/2011 08:51:51 DTaP, unspecified formulation 7 [facility] 07/20/2011 08:51:51 Hep B, unspecified formulation 7 [facility] 07/[facility]/2011 08:51:51 Hep B, unspecified formulation 6 [facility] 07/[facility]/2011 08:51:51 Hib, unspecified formulation 7 [facility]/2011 08:51:51 OPV 7 completed [facility] [facility]2011 08:51:51 DTaP, unspecified formulation 7 [facility] 08:51:51 IPV 1 [facility]/2011 08:51:51 Hib, unspecified formulation 7 [facility] 07/[facility]/2011 08:51:51 Hib, unspecified formulation 7 [facility]2011 08:51:51 Hib, unspecified formulation 8 [facility] 07/[facility]/2011 08:51:51 OPV 7 [facility] 07/[facility]/2011 08:51:51 DTaP, unspecified formulation 8 [facility]/2011 08:51:51 MMR 8 [facility] 07/20/2011 08:51:51 DTaP, unspecified formulation 1 [facility] 07/20/2011 08:51:51 meningococcal MCV4P 4 completed Not Available [facility] 07/22/2019 02:33:34 HPV, quadrivalent 4 completed Not Available [facility] 07/22/2019 02:34:11 Tdap 9 completed Not Available [facility] 05/09/2011 03:18:24 meningococcal ACWY, unspecified formulation 9 completed Not Available [facility] 05/09/2011 03:17:07 varicella 9 completed Not Available [facility] 05/09/2011 03:18:24 HPV, quadrivalent 5 completed Not Available [facility] 07/22/2019 02:36:10 Past Encounters Encounter ID Performer Location Encounter Start Date Encounter Closed Date Diagnosis/Indication Diagnosis SNOMED-CT Code Diagnosis ICD10 Code Diagnosis Note [id number] Stu Ruiz MD [facility] [address] [place] [address] 4 08/17/2007 11:33:05 08/17/2007 12:16:04 [id number] Gina Patricio MD [facility] [address] [place] [address] 4 09/28/2007 12:57:08 09/28/2007 13:45:08 [id number] Stu Ruiz MD [facility] [address] [place] [address] 4 03/28/2008 09:11:52 03/14/2009 01:23:50 [id number] Stu Ruiz MD [facility] [address] [place] [address] 04/02/2008 13:21:04 04/02/2008 14:06:52 [id number] Stu Ruiz MD [facility] [address] [place] [address] 08/17/2008 13:23:56 03/14/2009 01:23:50 [id number] Jeremias Parekh MD [facility] [address] [place] [address] 07/08/2009 15:25:45 07/08/2009 17:45:24 [id number] Jeremias Parekh MD [facility] [address] [place] [address] 07/17/2010 13:55:14 07/17/2010 14:43:02 [id number] Marry Lockwood MD [facility] [address] [place], [place] [address] [place] [address] 11/01/2010 11:38:01 11/01/2010 12:22:15 [id number] Gina Patricio MD [facility] [address] [place] [address] 03/11/2011 11:54:12 03/11/2011 13:51:38 [id number] Jeremias Parekh MD [facility] [address] [place] [address] 09/11/2011 11:06:20 09/11/2011 12:51:55 [id number] Marry Lockwood MD [facility] [address] [place] [address] 12/13/2011 10:33:18 12/13/2011 10:52:15 [id number] Marry Lockwood MD [facility] [address] [place] [address] 12/16/2011 13:18:55 12/16/2011 15:14:45 [id number] Jeremias Parekh MD [facility] [address] [place] [address] 07/12/2012 12:59:20 07/12/2012 13:22:05 [id number] Marry Lockwood MD [facility] [address] [place] [address] 01/30/2013 16:16:48 01/30/2013 17:27:55 Acute pharyngitis [id number] Marry Lockwood MD [facility] [address] [place] [address] 02/01/2013 14:09:53 02/01/2013 16:10:42 Acute pharyngitis [id number] Jeremias Parekh MD [facility] [address] [place] [address] 08/31/2013 09:21:42 08/31/2013 10:15:45 Well child [id number] Asthma [id number] Problem behavior [id number] Jeremias Parekh MD [facility] [address] [place] [address] 01/18/2015 13:23:23 01/18/2015 14:10:23 Adult health examination [id number] Health Concerns Section Related Observation LastModified by Organization Detai ls LastModified Time None Recorded Concern Status LastModified by Organization Details LastModified Time None Recorded Advance Directives Directive None Recorded Payers Encounter Date Sequence Insurance Name Policy Number Policy Andrade Covered Member ID Andrade Member ID Guarantor Name 07/12/2012 1 [facility] [employer] PLAN (MEDICAID HMO) [id number] Chai Knight [id number] Julia Lr 07/12/2012 1 [place] [facility] Chai Knight [id number] Julia Lr 01/30/2013 1 [facility] [employer] [facility] PLAN (MEDICAID HMO) [id number] Chai Knight [id number] Julia Lr 01/30/2013 1 [place] [id number] Julia Lr 02/01/2013 1 [facility] [employer] [facility] PLAN (MEDICAID HMO) [id number] Chai Knight [id number] Julia Lr 02/01/2013 1 [place] [id number] Julia Lr 08/31/2013 1 [facility] PLAN (MEDICAID HMO) [id number] Chai Knight [id number] Julia Lr 08/31/2013 1 [place] Chai Knight [id number] Julia Lr 01/18/2015 1 [place] Chai Knight [id number] Julia Lr 01/18/2015 1 [facility] (MEDICAID HMO) [id number] Chai Knight [id number] Julia Lr Notes Date Note Type Note Provider Name and Address Organization Details Recorded Time 07/12/2012 text/html does not reg take flovent. does cough with activity. asthma does prvent activity Jeremias Parekh MD [address] [place] [address], , [facility] 07/12/2012 13:21:16 01/18/2015 text/html Chai wonders if his asthma would affect his joining [employer]. He had [employer] about 10 yrs ago while he was in [place]. Jeremias Parekh MD [address] [place] [address], , [facility] 01/18/2015 14:09:40
== END 2024-11-01 15:16 | disposition home or self-care (01) ==
LOC: HO.HMCH 14:50
PROVIDERS: PCP Internal Medicine; Visit Provider Internal Medicine
DX: H93.13 Tinnitus, bilateral (principal); F41.9 Anxiety disorder, unspecified; F31.60 Bipolar disorder, current episode mixed, unspecified

== ENCOUNTER → 2024-11-01 14:49 | Outpatient (BNVA) | payer BC, SELFPAY | PROVIDERS: PCP Internal Medicine; Visit Provider Internal Medicine | DX: H93.13 Tinnitus, bilateral (principal); F41.9 Anxiety disorder, unspecified; F31.60 Bipolar disorder, current episode mixed, unspecified; Z79.899 Other long term (current) drug therapy | CPT/HCPCS: 96127 ==